=== PATIENT | female | born 1955 | race Caucasian/White ===

== ENCOUNTER 2022-10-12 10:58 | Emergency (ER) | payer SELFPAY ==
[~2022-10-12] VITALS: Ht 157.5 cm; Wt 100.0 kg
[~2022-10-12 10:58] MED LIST: AMLODIPINE; ATORVASTATIN; GLIMEPIRIDE
[2022-10-12 11:05] VITALS: BP 171/83; PULSE 115; RESP 18; TEMP 97.9; O2SAT 97
[2022-10-12 12:59] LABS: HEMATOCRIT. 30.5 % (36.0-48.0); HEMOGLOBIN. 9.4 g/dL (12.0-16.0); MEAN CORPUSCULAR HEMOGLOBIN 25.9 pg (28.0-32.0); MEAN CORPUSCULAR VOLUME 84.1 fL (81.0-99.0); MEAN PLATELET VOLUME 10.7 fl (7.4-10.4); PLATELET 162 x1000/uL (130-400); RED BLOOD CELL COUNT 3.63 mill/uL (4.2-5.4); RED CELL DISTRIBUTION WIDTH 17.6 % (11.6-14.6)
[2022-10-12 13:06] LABS: CHLORIDE 99 mEq/L (98-107)
[2022-10-12 13:36] LABS: PLATELET ESTIMATE NORMAL
[2022-10-12] MEDS ORDERED: VANCOMYCIN 1G PREMIX 200 ML IV NR (14:00)
[2022-10-12] MEDS ORDERED: PIPERACILLIN/TAZOBACTAM 3.375GM/50ML PREMIX IV ONE (14:00)
[2022-10-12] MEDS ORDERED: PIPERACILLIN/TAZ 3.375G PREMIX 50 ML IV NR (14:30)
== END 2022-10-12 14:38 | disposition left against medical advice (07) ==
LOC: ER 10:58 → CANBEDREQ 10-13 20:33
DX: I48.92 Unspecified atrial flutter (principal); R65.10 Systemic inflammatory response syndrome (SIRS) of non-infectious origin without acute organ dysfunction; I12.0 Hypertensive chronic kidney disease with stage 5 chronic kidney disease or end stage renal disease; E11.22 Type 2 diabetes mellitus with diabetic chronic kidney disease; N18.6 End stage renal disease; E78.00 Pure hypercholesterolemia, unspecified
CPT/HCPCS: 36415; 71045; 80053; 83880; 84484; 85025; 93005; 99285